=== PATIENT | female | born 1960 | race American Indian/Alaskan Native ===

== ENCOUNTER 2025-03-16 10:12 | Day surgery (SDC) | payer MEDICARE ==
[~2025-03-16] VITALS: Ht 167.6 cm; Wt 61.7 kg
[~2025-03-16 10:12] MED LIST: ALBU2.5V10 INH; ALBU8.5H INH; BUPR-670 PO; CYCLOPENTOLATE 1% OPHTH SOLN 2 ML BTL OD SCH; LIDOCAINE 3.5% 1 ML OPHTH TOPICAL GEL OU ONE; OFLOXACIN 0.3 % (OCUFLOX) OPTH SOL 5ML OD ONE; PHENYLEPHRINE 10% OPHTH SOL 5ML OD PRN; PHENYLEPHRINE 2.5% OPHTH SOL 2ML OD SCH; TREL1AER INH; TROPICAMIDE 1% OPHTH SOLN 15ML OD SCH
[2025-03-16] MEDS ORDERED: MIDAZOLAM INJ 2 MG/2 ML VIAL As Ordered ONE (10:56)
[2025-03-16] MEDS: LIDOCAINE 1% SDV 5 ML VIAL As Ordered ONE (12:39)
[2025-03-16] MEDS: BSS IRRIG/VANCO(10MG)/TOBRA(5MG)/EPINEPH(1:1000-0.5CC)500ML BAG-ORONLY As Ordered ONE (12:39)
[2025-03-16] MEDS: CEFUROXIME 1 MG/0.1 ML INTRACAMERAL INJ As Ordered ONE (12:43)
[2025-03-16 12:54] VITALS: BP 127/58; TEMP 97.5; O2SAT 97
== END 2025-03-16 13:11 | disposition home or self-care (01) ==
LOC: M SDC 10:12
PROVIDERS: ATTEND Ophthalmology
DX: H25.11 Age-related nuclear cataract, right eye (principal); H57.03 Miosis; J44.9 Chronic obstructive pulmonary disease, unspecified; G47.30 Sleep apnea, unspecified; K58.9 Irritable bowel syndrome, unspecified; Z79.899 Other long term (current) drug therapy; Z79.51 Long term (current) use of inhaled steroids; F17.210 Nicotine dependence, cigarettes, uncomplicated; Z90.710 Acquired absence of both cervix and uterus; Z90.49 Acquired absence of other specified parts of digestive tract; Z88.5 Allergy status to narcotic agent; Z88.6 Allergy status to analgesic agent
CPT/HCPCS: 66982; J0697; J2250; J3010; V2632

== ENCOUNTER 2025-03-23 09:07 | Day surgery (SDC) | payer MEDICARE ==
[~2025-03-23] VITALS: Ht 167.6 cm; Wt 62.2 kg
[~2025-03-23 09:07] MED LIST changes: -CYCLOPENTOLATE 1% OPHTH SOLN 2 ML BTL OD SCH; -LIDOCAINE 3.5% 1 ML OPHTH TOPICAL GEL OU ONE; +MIDAZOLAM INJ 2 MG/2 ML VIAL As Ordered ONE; -OFLOXACIN 0.3 % (OCUFLOX) OPTH SOL 5ML OD ONE; -PHENYLEPHRINE 10% OPHTH SOL 5ML OD PRN; +PHENYLEPHRINE 10% OPHTH SOL 5ML OS PRN; -PHENYLEPHRINE 2.5% OPHTH SOL 2ML OD SCH; -TROPICAMIDE 1% OPHTH SOLN 15ML OD SCH
[2025-03-23] MEDS: LIDOCAINE 3.5% 1 ML OPHTH TOPICAL GEL OU ONE (10:35)
[2025-03-23] MEDS ORDERED: THERTAB19 PO (10:35)
[2025-03-23] MEDS: OFLOXACIN 0.3 % (OCUFLOX) OPTH SOL 5ML OS ONE (10:35)
[2025-03-23] MEDS: CYCLOPENTOLATE 1% OPHTH SOLN 2 ML BTL OS SCH (10:35)
[2025-03-23] MEDS ORDERED: VITA500T40 PO (10:35)
[2025-03-23] MEDS ORDERED: OMEG-28 PO (10:35)
[2025-03-23] MEDS ORDERED: VITA500C24 PO (10:35)
[2025-03-23] MEDS: TROPICAMIDE 1% OPHTH SOLN 15ML OS SCH (10:35)
[2025-03-23] MEDS ORDERED: ASPI81TA26 PO (10:35)
[2025-03-23] MEDS ORDERED: THERTAB52 PO (10:35)
[2025-03-23] MEDS ORDERED: VITA500T17 PO (10:35)
[2025-03-23] MEDS: PHENYLEPHRINE 2.5% OPHTH SOL 2ML OS SCH (10:35)
[2025-03-23] MEDS: LIDOCAINE 1% SDV 5 ML VIAL As Ordered ONE (10:58)
[2025-03-23] MEDS: CEFUROXIME 1 MG/0.1 ML INTRACAMERAL INJ As Ordered ONE (10:58)
[2025-03-23] MEDS: BSS IRRIG/VANCO(10MG)/TOBRA(5MG)/EPINEPH(1:1000-0.5CC)500ML BAG-ORONLY As Ordered ONE (10:58)
[2025-03-23 11:12] VITALS: BP 130/78; TEMP 97.6; O2SAT 97
== END 2025-03-23 11:27 | disposition home or self-care (01) ==
LOC: M SDC 09:07
PROVIDERS: ATTEND Ophthalmology
DX: H25.12 Age-related nuclear cataract, left eye (principal); H57.03 Miosis; J44.89 Other specified chronic obstructive pulmonary disease; G47.30 Sleep apnea, unspecified; K58.9 Irritable bowel syndrome, unspecified; Z79.899 Other long term (current) drug therapy; Z79.82 Long term (current) use of aspirin; Z79.51 Long term (current) use of inhaled steroids; Z90.710 Acquired absence of both cervix and uterus; F17.210 Nicotine dependence, cigarettes, uncomplicated; Z90.49 Acquired absence of other specified parts of digestive tract; Z88.5 Allergy status to narcotic agent; Z88.6 Allergy status to analgesic agent
CPT/HCPCS: 66982; J0697; J2250; J3010; V2632